=== PATIENT | female | born 1995 | race Caucasian/White ===

== ENCOUNTER 2025-01-07 08:30 | Outpatient (RCR) | payer OTHER, SELFPAY ==
--- NOTE | 2024-10-15 09:48 | OPREHPOC ---
Outpatient Therapy Plan of Care This is a Multidisciplinary Plan of Care that may contain components documented by all disciplines (PT, OT, and ST.) PT Problem 1 PT Problem #1 Knowledge Deficit PT Goal 1 Goal / Goal Update 1. Patient will perform independent HEP Target Visit 3 PT Problem 2 PT Problem #2 Pain PT Goal 1 Goal / Goal Update 1. No pain with pelvic floor palpation in order to reduce pain with urination and tolerate tampon use 2. No pain with urination for at least 1 month Target Visit 4 PT Problem 3 PT Problem #3 Impaired Strength PT Goal 1 Goal / Goal Update 1. Improve pelvic floor strength to 4/5 to reduce incontinence 2. Improve pelvic floor endurance to 10 seconds to reduce incontinence Target Visit 4 PT Problem 4 PT Problem #4 Impaired Functional ADLs PT Goal 1 Goal / Goal Update 1. Patient will report urinary incontinence no more than 1 time a month Target Visit 4
--- NOTE | 2024-10-15 09:48 | PTOPEVAL1 ---
Assessment and note entered by Mireya Cavanaugh DPT Evaluation Information Assessment Status Evaluation ICD-10 Condition Codes (PT) Pelvic and perineal pain R10.2,Stress incontinence N39.3 Subjective Information Pt reports stress incontinence that has been going on for a long time in her life. Wants to resolve the issue before attempting to have children. Also reports burning with urination if she is very stressed out. Voids 5 times a day and usually none at night. Incontinence 2-3 times a week, sometimes has to change her underwear. Sometimes wears a pad or liner. Can hold urge to void up to 30 minutes. Highest pain with urination when it happens is a 6/10 and lowest 0/10. BM 2-3 times a day without pain. Has had intermittent pelvic pain after intercourse at times. Discomfort with tampons and typically does not use them. Pt has never been . No [employer] history. Chronic UTI's she thinks were associated with IUD in 2016. Patient goal: prepare for and childbirth , minimize incontinence Returns to [place] over the summer. Reported Pain Level Pain Score 0: Self Report Assessment PT Clinical Summary The patient is presenting to skilled therapy with a history of stress incontinence and also reports a history of intermittent pelvic pain/pain with urination. She presents with decreased pelvic floor strength and endurance as well as increased pelvic floor muscle tone, pain with palpation, and difficulty relaxing after contraction. She will highly benefit from skilled therapy to address muscle tone and strength in order to eliminate pain and incontinence and to restore full function . Plan of Care Interventions Electrical Stimulation,Hot Pack/Cold Pack,Manual Therapy,Neuro Re-education,Patient/Caregiver Education,Therapeutic Activities,Therapeutic Exercise PT Services Indicated Yes Treatment Frequency and 1 time a week for 4 visits Duration These treatments will address the objective and functional deficits as defined above. The patient will be advanced safely and appropriately in order for the patient to progress towards his/her prior level of function. Additional exercises will be introduced and as well as a comprehensive home exercise program upon discharge, if needed, ?to ensure carryover of functional gains achieved in the clinic. This treatment plan has been reviewed and agreement upon by the patient.
--- NOTE | 2024-11-05 09:02 | OPREHPOC ---
Outpatient Therapy Plan of Care This is a Multidisciplinary Plan of Care that may contain components documented by all disciplines (PT, OT, and ST.) PT Problem 1 PT Problem #1 Knowledge Deficit PT Goal 1 Goal / Goal Update 1. Patient will perform independent HEP Target Visit 3 Progress Met PT Problem 2 PT Problem #2 Pain PT Goal 1 Goal / Goal Update 1. No pain with pelvic floor palpation in order to reduce pain with urination and tolerate tampon use 2. No pain with urination for at least 1 month update 11/05/24 1. met 2. not met Target Visit 8 Progress Partially Met PT Problem 3 PT Problem #3 Impaired Strength PT Goal 1 Goal / Goal Update 1. Improve pelvic floor strength to 4/5 to reduce incontinence 2. Improve pelvic floor endurance to 10 seconds to reduce incontinence Target Visit 4 Progress Not Met PT Problem 4 PT Problem #4 Impaired Functional ADLs PT Goal 1 Goal / Goal Update 1. Patient will report urinary incontinence no more than 1 time a month update 11/05/24 1. decreased incontinence over the last week Target Visit 8 Progress Partially Met
--- NOTE | 2024-11-05 09:02 | PTOPPROG ---
Assessment and note entered by Mireya Cavanaugh DPT Evaluation Information Assessment Status Progress ICD-10 Condition Codes (PT) Pelvic and perineal pain R10.2,Stress incontinence N39.3 Subjective Information Pt reports she has been feeling improvements with therapy. Did have a busy/stressful week and noticed some pain, but incontinence was improved with sneezing over the past week. Assessment PT Clinical Summary The patient has made some progress in therapy. No pain reported with pelvic floor palpation this visit and reports improvements in incontinence over the last week. She does continue to display increased pelvic floor muscle tone as well as decreased strength/endurance and she will benefit from further therapy to fully address pain and incontinence to restore full function. Plan of Care Interventions Electrical Stimulation,Hot Pack/Cold Pack,Manual Therapy,Neuro Re-education,Patient/Caregiver Education,Therapeutic Activities,Therapeutic Exercise PT Services Indicated Yes Treatment Frequency and 1 time a week for 4 visits Duration These treatments will address the objective and functional deficits as defined above. The patient will be advanced safely and appropriately in order for the patient to progress towards his/her prior level of function. Additional exercises will be introduced and as well as a comprehensive home exercise program upon discharge, if needed, ?to ensure carryover of functional gains achieved in the clinic. This treatment plan has been reviewed and agreement upon by the patient.
--- NOTE | 2024-11-10 15:54 | PCPTNOTE ---
Patient called to cancel appointment 11/10/24 due to inclement weather.
--- NOTE | 2024-12-02 08:57 | OPREHPOC ---
Outpatient Therapy Plan of Care This is a Multidisciplinary Plan of Care that may contain components documented by all disciplines (PT, OT, and ST.) PT Problem 1 PT Problem #1 Knowledge Deficit PT Goal 1 Goal / Goal Update 1. Patient will perform independent HEP Target Visit 3 Progress Met PT Problem 2 PT Problem #2 Pain PT Goal 1 Goal / Goal Update 1. No pain with pelvic floor palpation in order to reduce pain with urination and tolerate tampon use 2. No pain with urination for at least 1 month update 11/05/24 1. met 2. not met update 12/02/24 2. not met Target Visit 11 Progress Partially Met PT Problem 3 PT Problem #3 Impaired Strength PT Goal 1 Goal / Goal Update 1. Improve pelvic floor strength to 4/5 to reduce incontinence 2. Improve pelvic floor endurance to 10 seconds to reduce incontinence update 12/02/24 1. improved to 3/5 2. not met Target Visit 11 Progress Partially Met PT Problem 4 PT Problem #4 Impaired Functional ADLs PT Goal 1 Goal / Goal Update 1. Patient will report urinary incontinence no more than 1 time a month update 11/05/24 1. decreased incontinence over the last week update 12/02/24 1. 1 time in the last 2 weeks Target Visit 11 Progress Partially Met
--- NOTE | 2024-12-02 08:58 | PTOPPROG ---
Assessment and note entered by Mireya Cavanaugh DPT Evaluation Information Assessment Status Progress ICD-10 Condition Codes (PT) Pelvic and perineal pain R10.2,Stress incontinence N39.3 Subjective Information Pt reports generally she has noticed a lot of progress over the last few weeks. Highest pain in last few weeks 410 but overall has been a 0/10. Has had multiple days in a row without pain. Incontinence 1 time over the last 2 weeks due to a lot of coughing and sneezing. Assessment PT Clinical Summary The patient has continued to make good progress in therapy. Highest pain recently 12/30 but has had multiple pain free days in a row. Incontinence only 1 time in the last 2 weeks. She demonstrates improved pelvic floor strength and ability to relax after contraction as well as further improved abdominal strength. Due to her progress but continued pain, plan to continue therapy to further address pain in order to restore full function. Plan of Care Interventions Electrical Stimulation,Hot Pack/Cold Pack,Manual Therapy,Neuro Re-education,Patient/Caregiver Education,Therapeutic Activities,Therapeutic Exercise PT Services Indicated Yes Treatment Frequency and 1 visit every 2-3 weeks for 3 visits Duration These treatments will address the objective and functional deficits as defined above. The patient will be advanced safely and appropriately in order for the patient to progress towards his/her prior level of function. Additional exercises will be introduced and as well as a comprehensive home exercise program upon discharge, if needed, ?to ensure carryover of functional gains achieved in the clinic. This treatment plan has been reviewed and agreement upon by the patient.
== END 2025-01-13 23:59 | disposition home or self-care (01) ==
LOC: ANHPT 08:30
PROVIDERS: PCP Nurse Practitioner; Visit Provider Nurse Practitioner
DX: N39.3 Stress incontinence (female) (male) (principal)
CPT/HCPCS: 97110; 97112; 97140; 97161; 97530

== ENCOUNTER 2025-01-25 10:54 | Observation (INO) | payer OTHER, SELFPAY ==
[2025-01-25] MEDS: METOCLOPRAMIDE HCL INJ 10 MG/2 ML VIAL IV PUSH (11:47)
--- OUTSIDE RECORDS SUMMARY | 2025-01-25 11:52 | XMS_ITS | Data Portability ---
Author Organization [facility] Address [address] [place] [address] Care Team Providers Care Movement Assembler Name Role Phone ALEXEY BEARD Primary Care Provider Assessment Encounter Date Assessment Date Assessment LastModified by Organization Details LastModified Time 04/16/2024 04/16/2024 Annual gynecological exam performed. Patient will come back in a year unless there are new symptoms. Not available 04/16/2024 10:17:15 Plan of Treatment Reminders Order Date Submit Date Provider Last Modified By Organization Details Last Modified Time Details Appointments FOLLOW UP 2024 10:15A M Smita Vitale CNM Not available Not available Not available U/S OB SNEAK PEAK 2024 08:30A M ULTRASOUND Not available Not available Not available OB SCREEN 2024 09:15A M Smita Vitale CNM Not available Not available Not available Lab None recorde d. Referral pelvic floor therapy referra l [address] (Outpatient Physical Therapy), [address], [place], [address], 01/21/2025 16:52:52 Procedures None recorde d. Surgeries None recorde d. Imaging None recorde d. Medication Orders 10/11 (28) 1 mg-20 mcg (21)/75 mg (7) tablet 2023 024 tabner1 clipkit - [facility], [address], [place], [place], [id number], 09/29/2024 10:01:22 Patient TargetsNo targets recorded. Patient InstructionsNo instructions recorded. Reason for Referral Pelvic Floor Therapy Referra l for Female stress incontinence Referring Physician: Zeinab Hernandez, TECHNICAL SALES MANAGER, Encounter Date: 09/29/2024 Results Created Date Observation Date Name Description Value Unit Range Abnormal Flag Note LastModifiedBy Organization Detail LastModifiedTime 10/10/19 25 10/10/2024 [UNIT Y] SOM Muhammad sickle cell disease/beta -thalassemia /hemoglobino pathies carrier screen NEGATI VE normal Not Available [facility] [address] [facility], [place], [address], 10/10/2024 11:38:10 10/10/19 25 10/10/2024 [UNIT Y] SOM CYNTHIA GIOVANASeun Muhammad alpha-thalas semia carrier screen NEGATI VE normal Not Available [facility], [place], [address], 10/10/2024 11:38:10 10/10/19 25 10/10/2024 [UNIT Y] SOM CYNTHIA GIOVANASeun Muhammad cystic fibrosis carrier screen NEGATI VE normal Not Available [facility] [address] [facility], [place], [address], 10/10/2024 11:38:10 10/10/19 25 10/10/2024 [UNIT Y] SOM MARIE GIOVANASeun Muhammad spinal muscular atrophy carrier screen NEGATI VE 2 SMN1 copies , SNP not presen t normal Not Available [facility] [address] [facility], [place], [address], 10/10/2024 11:38:10 10/10/19 25 10/10/2024 [UNIT Y] SOM Muhammad for detailed report, see pdf See PDF normal Not Available [facility] [address] [facility], [place], [address], 10/10/2024 11:38:10 04/16/20 24 04/16/2024 IMAGE GUIDE D PAP, REFLE X HPV IF ASCUS ONLY image guided Pap, reflex HPV ASCUS only SEE RESULT S BELOW CASE REPOR T: Cytol ogy Gynec ologi galen Repor t Case: [id number] [address] sabrina luciano Provi marvin: Zeinab Hernandez, ELDA Morse cted: 04/16 1104 Order ing Locat ion: [place] Path[facility] logilda Recei pretty: 04/17 0233 First Scree n: Zohra Thompson, CT Rescr een: Nancy Mario Speci men: Terra calloway Pap - Image d, Cervi x STATE MENT OF ADEQU ACY: Satis facto ry for evalu ation Trans forma tion zone compo nent prese nt ----- ----- ----- ----- ----- ----- ----- ----- ----- ----- ----- ----- ----- ----- ----- ----- ----- ---- FINAL DIAGN OSIS: Negat bobby for Intra epith elial Lesio n or Gina herrera (NIL) . Elect tree calvillo by Nancy Mario on 024 at 7:45 PM ----- ----- ----- ----- ----- ----- ----- ----- ----- ----- ----- ----- ----- ----- ----- ----- ----- ---- COMME NT: This speci men was revie wed by a Cytot echno logis t and/o r Patho logis t (as indic ated in this repor t) after evalu ation using the Thinp rep Imagi ng Syste m. CLINI GALEN INFOR MATIO N: Menst rual Statu s: LMP (if appli cable ): 2023 Clini galen Histo ry/Pr brendon s Pap: Type of Neopl darryn (if appli cable ): Signi fican t Clini galen Findi ngs: Other Histo ry: Hormo jenni (if appli cable ): PAP EDUCA TATUM L NOTE: The Pap Test is a scree elli test with an inher ent false negat bobby rate. Liqui d-bas ed sampl ing may decre ase, but will not elimi david, false negat bobby resul ts. A negat bobby resul t does not precl ude the prese nce and/o r devel opmen t of disea se, since the prese nce of abnor mal cells in the sampl e depen ds on the locat ion of the lesio n and sampl ing techn ique. Kaleigh nued regul ar scree elli is the best metho d of cance r preve ntion . If repor talya cytol ogic findi ng do not corre late with physi galen and/o r histo rical findi ngs, furth er inves tigat ion is recom nicolasa d, as clini kayla warra nted. Not Available [facility] (Lab) [address] [facility], [place], [address], 04/23/2024 20:48:57 Result Notes None recorded. Problems Name Problem SNOMED Code Status Onset Date Resolution Date Notes Provider Name and Address Organization Details Recorded Time Attention deficit hyperactivity disorder 664087842 Active 2024 Staci garcía [facility] 5 11:32:31 Mixed anxiety and depressive disorder 967652774 Active 2024 Staci garcía [facility] 5 11:32:40 Problem Notes None recorded. Procedures Surgical History Date Name Laterality Status Provider Name and Address Organization Details Recorded Time 4 Date of Last Pap Smear completed Cecelia Lenz [facility] 09/29/2024 10:01:45 5 extraction of wisdom tooth completed Staci Jara [facility] 01/25/2025 11:38:12 Imaging Results None recorded. Procedure Notes None recorded. Medical Equipment None Reported. Allergies Allergen ID Allergen Name Allergen Category Reaction Reaction Severity Criticality Documentation Date Start Date Code Code System Note Provider Name and Address Organization Details Recorded Time 79358 erythromy suleiman medicatio n hives moderate Not available 04/16/2024 4053 RxNorm [facility] 10:17:32 89318 Substance with sulfonami de structure and antibacte rial mechanism of action (substanc e) medicatio n Not available Not available Not available 04/16/2024 [address] [facility] 10:23:50 Medications Name Sig Start Date Stop Date Status Note LastModified by Organization Details LastModified Time fluconazole 150 mg tablet TAKE 1 TABLET BY MOUTH NOW AND 1 TABLET AGAIN AFTER ANTIBIOTI CS ARE FINISHED. 09/29 completed Not Available Not Available Not Available prednisone 20 mg tablet TAKE 3 TABLETS BY EVERY MORNING FOR 5 DAYS 09/29 completed Not Available Not Available Not Available doxycycline monohydrate 100 mg tablet TAKE 1 TABLET BY MOUTH TWICE A DAY FOR 7 DAYS 09/29 completed Not Available Not Available Not Available albuterol sulfate HFA 90 mcg/actuati on aerosol inhaler PLEASE SEE ATTACHED FOR DETAILED DIRECTION S 09/29 completed Not Available Not Available Not Available metoclopram geovany 10 mg tablet Take 1 tablet 4 times a day by oral route as needed. active Not Available Not Available No t Available 10/11 (28) 1 mg-20 mcg (21)/75 mg (7) tablet take 1 tablet by mouth daily, take continuou sly skipping placebo pills 09/29 completed Not Available Not Available Not Available 10/11 (21) 05/28 completed Not Available Not Available Not Available Vitals Date Recorded Body weight Body mass index (BMI) Body height Systolic blood pressure Diastolic blood pressure Provider Name and Address Organization Details Last Updated DateTime 04/16/2024 43581.96 g 21.4 kg/m2 160.02 cm 116 mm[Hg] 74 mm[Hg] Alesia Bejarano [facility] 4 10:22:58 Date Recorded Body height Body mass index (BMI) Body weight Systolic blood pressure Diastolic blood pressure Provider Name and Address Organization Details Last Updated DateTime 09/29/2024 160.02 cm 21.8 kg/m2 60000.86 g 138 mm[Hg] 70 mm[Hg] Cecelia Lenz [facility] 5 10:00:41 Date Recorded Body height Body mass index (BMI) Body weight Systolic blood pressure Diastolic blood pressure Provider Name and Address Organization Details Last Updated DateTime 01/25/2025 160.02 cm 21.1 kg/m2 37922.49 g 128 mm[Hg] 68 mm[Hg] Staci Jara [facility] 5 11:31:34 Social History Question Answer Notes LastModified by Organizat ion Details LastModified Time Tobacco Smoking Status Never Smoker Alesia garcía, [facility] 04/16/2024 10:25:27 What Is Your Level Of Alcohol Consumption? None [email or web address] Information not available 01/25/2025 If You Are , What Was Your Level Of Alcohol Consumption Prior To ? Occasional [email or web address] Information not available 01/25/2025 How Many Years Have You Consumed Alcohol? 8 Information not available 04/16/2024 Are You Blind Or Do You Have Difficulty Seeing? No Information n ot available 04/16/2024 What Is Your Level Of Caffeine Consumption? Occasional Information not available 04/16/2024 How Much Tobacco Do You Chew? None Information not available 04/16/2024 In The 14 Days Before Symptom Onset, Have You Had Close Contact With A Laboratory-confirm ed COVID-19 While That Case Was Ill? No Information n ot available 04/16/2024 In The 14 Days Before Symptom Onset, Have You Had Close Contact With A Person Who Is Under Investigation For COVID-19 While That Person Was Ill? No Information not available 04/16/2024 Have You Been To An Area Known To Be High Risk For COVID-19? No Information not available 04/16/2024 Are You Deaf Or Do You Have Serious Difficulty Hearing? No Information not available 04/16/2024 What Type Of Diet Are You Following? REGULAR Information n ot available 04/16/2024 What Is The Highest Grade Or Level Of School You Have Completed Or The Highest Degree You Have Received? 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 No Information not available 04/16/2024 Do You Use Your Seat Belt Or Car Seat Routinely? Yes Information not available 04/16/2024 Do You Have Smoke And Carbon Monoxide Detectors In Your Home? Yes Information not available 04/16/2024 How Much Tobacco Do You Smoke? No Information not available 04/16/2024 Do You Feel Stressed (tense, Restless, Nervous, Or Anxious, Or Unable To Sleep At Night)? [id number] Information not available 04/16/2024 Do You Use Any Illicit Or Recreational Drugs? No Information not available 04/16/2024 Do You Use Sunscreen Routinely? Yes Information not available 04/16/2024 How Many Years Have You Smoked Tobacco? 0 Information not available 04/16/2024 Have You Used IV Drugs? No Information not available 04/16/2024 Sex: Unknown Functional Status Question Answer Note LastModified by Organizat ion Details LastModified Time Do you have difficulty walking or climbing stairs? No Information not available 04/16/2024 Are you able to walk? YESWOREST Information not available 04/16/2024 Are you able to care for yourself? Yes Information not available 04/16/2024 Do you have difficulty dressing or bathing? No Information not available 04/16/2024 What is your exercise level? Heavy Information not available 04/16/2024 Mental Status None recorded. Family History Relationship Description Onset Age of this Age Resolved Age Notes LastModified by Organization Details LastModified Time Unspecified Relation Family history unknown Not available 2023 10:17:38 Mother Mammographic breast tissue appearance dense breast tissue [email or web address] Not available 01/25/2025 11:37:37 Paternal Grandfather Malignant tumor of colon [email or web address] Not available 01/25 11:37:48 Medical History Condition Response Allergies (Food, seasonal, environmental ) Y Other N Drug/Latex Allergies/Reactions Y Breast Cancer N Blood Transfusion N Dermatologic Disorders N Lung Disease N Defects or Inherited Disease N Breast Problem N Gestational Diabetes N Hematologic disorders N Anesthesia Complications N History of STI N Deep Vein Thrombosis N Polycystic ovary syndrome N Anxiety Disorder Y Autoimmune disease N Arthritis N Polyps N Infertility N Acid Reflux (GERD) N History of abnormal pap N Cancer N Varicosities N Stroke N Neurologic/Epilepsy Y Endometriosis N High Cholesterol N Fibromyalgia N Headaches N Kidney Disease N Heart Problems N Thyroid Problems N Kidney or Bladder Problems N GI Problems N Eating Disorder N Anemia N Art (IVF or FET) N Psychiatric Illness Y Ovarian Cancer N Diabetes N Pulmonary (TB, Asthma) N Hepatitis/Liver Disease N No Past Medical History N Eczema N Urinary Tract Infection N Abuse/Domestic Violence N Asthma N Trauma/Violence N Depression/ depression Y Heart Disease N Pre-Eclampsia N Hypertension N Osteoporosis N Thrombophilias N Gynecological History Statement/Question Response Abnormal Pap N Flow Light Date of Last Mammogram Date of LMP 12/03/2024 N Was last menstrual period normal Y STIs/STDs N HPV Vaccine Y Duration of Flow (days) 5 Current Control Method Are cycles usually normal Y Date of Last Colonoscopy Frequency of Cycle (Q days) 29 Sexually Active? Y BCPs Menses Monthly Y Date of DEXA bone scan Age of first menstrual cycle 12 Date of Last Pap Smear 04/16/2024 Sexual Problems? N LMP Definite N Obstetrics History GPAL:G 0 P 0 0 0 0 Type Value Living 0 Total 0 Past Encounters Encounter ID Performer Location Encounter Start Date Encounter Closed Date Diagnosis/Indication Diagnosis SNOMED-CT Code Diagnosis ICD10 Code Diagnosis Note [id number] CALEB Alcaraz [place] [address] [address] 04/16/2024 10:14:10 04/16/2024 10:55:21 Gynecologic examination 58120662 Z01.419 WWEpap updateddec lined STI screenenco uraged annual exam with PCP It is strongly advised to have an annual flu shot and up can obtain at most pharmacies . If you have not had a TDap shot in the last 10 years you should obtain one as well. Discussed with patient & provided with informatio n regarding the HPV vaccine if applicable . Encourage safe sexual practices, to use condoms and limit partners if not already in a monogamous relationsh ip. Do monthly self breast exams. BRCA testing is now available for patients with strong genetic history of female cancer. If interested contact the office. Engage in regular exercise. Avoid tobacco and illicit drugs. This lifestyle behavior pattern will lead to less health conditions and longer life span. If BMI greater than 25 dietary consult advised. Patient received above instructio ns, and questions have been answered. Contracept ion care management 809169245 Z30.9 Doing well on current OCP and desires to continuere fills sent, r/b/a reviewed, consent reviewed and signed by pt [id number] CALEB Alcaraz [facility] [address] [address] 09/29/2024 09:47:07 09/29/2024 12:39:30 Female stress incontinence 36661482 N39.3 referral for pelvic floor physical therapy chichi rousseau answered Reproducti ve care management [id number] Z31.9 encouraged daily PNVdiscuss ed TTCorder placed for preconcept ion genetic carrier screening per pt request Time spent in visit is a total of 20 mins with at least 50% of visit consisting of counseling and review of plan of care. Health Concerns Section Related Observation LastModified by Organization Detai ls LastModified Time None Recorded Concern Status LastModified by Organization Details LastModified Time None Recorded Advance Directives Directive None Recorded Payers Encounter Date Sequence Insurance Name Policy Number Policy Bain Covered Member ID Bain Member ID Guarantor Name 04/16/2024 1 [facility] [id number] Marcie Mares [id number] Marcie Mares 09/29/2024 1 [facility] [id number] [facility] [id number] Marcie Mares Notes Date Note Type Note Provider Name and Address Organization Details Recorded Time 04/16/2024 text/html Annual GYNReport ed bypatient.Menstrual cycle:Normal menses Urinary symptoms:No hematuria; No incontinence Vulva:No genital lesion Vagina:Normal vaginal discharge Breast:No breast pain; No breast lump; No nipple discharge Current Contraception:Satisf ied with current contraception; Oral contraceptives Sexual complaints:No sexual complaints; No pain during intercourse; Normal libido Menopausal Symptoms:No menopausal symptoms; Normal vaginal lubrication Psychological symptoms:No depression; No anxiety; No PMDD Preventive measures:Encourage self breast examination; Encourage regular exercise; Encourage no tobacco use; Encourage regular mammograms starting age 39Notes:28yo [id number] - OCP, happy with this method and desires to continueno h/o abnormal paps denies h/o DVT/PE, HTN, Stroke/PA, cancer, liver disease, or migraine with aura getting in May at [facility] CALEB Alcaraz [address], [place], [address], [facility] 04/16/2024 10:52:29 09/29/2024 text/html 29yo [id number] to discuss pelvic floor physical therapyhas noticed leaking urine with coughing/exercise at times. Considering TTC this year and would like to trail PFPT prior to .Int in preconception genetic carrier screening CALEB Alcaraz [address], [place], [address], [facility] 09/29/2024 12:37:28 OBGyn Episode No OBEpisode recorded.
[2025-01-25 11:58] LABS: Hematocrit 43.1 % (37.0-47.0); Hemoglobin 14.7 g/dL (12.0-15.0); Mean Corpuscular HGB Conc 34.1 g/dl (32-36); Mean Corpuscular Hemoglobin 30.5 pg (26-34); Mean Corpuscular Volume 89.4 fl (80-100); Mean Platelet Volume 10.4 fl (7.4-10.4); Platelet Count Result 245 k/mm3 (150-375); Red Blood Count 4.82 M/mm3 (4.2-5.4); Red Cell Distribution Width 11.8 % (11.5-14.5); White Blood Count 10.7 K/mm3 (4.5-10.0)
[2025-01-25] MEDS: FAMOTIDINE 20 MG/2 ML VIAL IV PUSH (12:04)
[2025-01-25] MEDS: THIAMINE HCL INJ 100 MG, FOLIC ACID INJ 1 MG, MULTIVITAMINS-12 INJ VIAL 1 5 ML, MULTIVI... 150 MG IV CONT (12:04)
[2025-01-25 12:09] LABS: Add Urine Microscopic? YES; Appearance Urine Turbid (Clear); Bacteria Urine 3+ /hpf; Bilirubin Urine Negative (Negative); Blood Urine Negative (Negative); Color Urine Yellow (Yellow); Glucose Urine UA Negative (Negative); Ketones Urine Trace mg/dL (Negative); Leukocyte Esterase Ur 1+ LEU/UL (Negative); Mucus Urine Present /lpf; Need Manual Microscopic Reviewed; Nitrate Urine Negative (Negative); Non Pathogenic Casts 0-2; Protein Urine 1+ mg/dL (Negative); Specific Grav Ur 1.024 (1.001-1.035); Squamous Epithelial Cell Urine Moderate /hpf (Few); WBC Urine 0-5 /hpf (0-3)
[2025-01-25 12:10] LABS: Amorphous Sediment Urine Heavy
[2025-01-25 12:27] VITALS: BP 110/59; PULSE 66; RESP 16; TEMP 37.2; BMI 20.7
[2025-01-25 12:27] LABS: Alanine Aminotransferase 23 U/L (6-35); Albumin Level 4.3 g/dL (3.5-5.1); Alkaline Phosphatase 56 U/L (38-126); Anion Gap 10 mmol/L (4-12); Aspartate Amino Transferase 21 U/L (14-36); Bilirubin,Total 1.5 mg/dL (0.2-1.3); Blood Urea Nitrogen 6 mg/dL (7-17); Calcium 9.2 mg/dL (8.4-10.2); Carbon Dioxide 22 mmol/L (22-30); Chloride 106 mmol/L (98-107); Estimated Glomerular Filt Rate > 60; Glucose 86 mg/dL (65-110); Potassium 3.8 mmol/L (3.4-5.0); Sodium 138 mmol/L (137-145)
[2025-01-25 12:46] VITALS: BP 110/59; PULSE 66
--- NOTE | 2025-01-25 14:39 | OBADM ---
This patient, Marcie Marques, admitted to the OB room OB Post 112 for observation. Patient/family oriented to hospital policies and general routines including ID bracelet, bed and alarms, visiting hours, pain management, procedures, bathroom and other care routines, personal items, smoking policy, room service/diet, and visiting hours. Patient/Family are encouraged to report perceived risks to care and to ask questions if they do not understand what they are told or what they should do.
--- NOTE | 2025-01-26 14:45 | P.PNOB_ITS ---
OB - Triage/Final Diagnosis Visit Information Date of evaluation: 01/25/25 Reason for evaluation: other (nausea and vomiting) Comments/Additional reasons for admission: I have assessed the risk for this patient, Marcie Marques, and determined that she would benefit from observation care. Evaluation Laboratory results: Laboratory Tests 01/25/25 01/25/25 11:31 11:48 WBC 10.7 H RBC 4.82 Hgb 14.7 Hct 43.1 MCV 89.4 MCH 30.5 MCHC 34.1 RDW 11.8 Plt Count 245 MPV 10.4 Sodium 138 Potassium 3.8 Chloride 106 Carbon Dioxide 22 Anion Gap 10 BUN 6 L Creatinine 0.46 L Estim Creat Clear Calc Not Reportable Estimated GFR > 60 Glucose 86 Calcium 9.2 Total Bilirubin 1.5 H AST 21 ALT 23 Alkaline Phosphatase 56 Total Protein 8.0 Albumin 4.3 Urine Color Yellow Urine Appearance Turbid H Urine pH 8.0 Ur Specific [place] 1.024 Urine Protein 1+ H Urine Glucose (UA) Negative Urine Ketones Trace H Ur Blood (Man) Negative Urine Nitrate Negative Urine Bilirubin Negative Urine Urobilinogen 1.0 Ur Leukocyte Esterase 1+ H Add Ur Microanalysis Reviewed Urine RBC 3-5 H Urine WBC 0-5 Ur Squamous Epith Cells Moderate Amorphous Sediment Heavy H Urine Bacteria 3+ H Urine Casts 0-2 Urine Mucus Present
== END 2025-01-25 15:12 | disposition home or self-care (01) ==
PROVIDERS: Admitting Provider Obstetrics & Gynecology; PCP Nurse Practitioner; Referring Provider Advanced Practice Midwife; Visit Provider Obstetrics & Gynecology
DX: O21.0 Mild hyperemesis gravidarum (principal); Z3A.01 Less than 8 weeks gestation of pregnancy
CPT/HCPCS: 36415; 80053; 81001; 85027; 87086; 96374; 96375; G0378; G0379; J2765; J3411; J3475; J7121

== ENCOUNTER 2025-01-28 10:40 | Outpatient (CLI) | payer OTHER, SELFPAY ==
--- OUTSIDE RECORDS SUMMARY | 2025-01-28 10:50 | XMS_ITS | Data Portability ---
Author Organization [facility] [place] Address [address] [place] [address] Care Team Providers Care Parks Recreation Director Name Role Phone ALEXEY BEARD Primary Care Provider Assessment Encounter Date Assessment Date Assessment LastModified by Organization Details LastModified Time 04/16/2024 04/16/2024 Annual gynecological exam performed. Patient will come back in a year unless there are new symptoms. Not available 04/16/2024 10:17:15 Plan of Treatment Reminders Order Date Submit Date Provider Last Modified By Organization Details Last Modified Time Details Appointments U/S OB SNEAK PEAK 2024 08:30A M ULTRASOUND Not available Not available Not available OB SCREEN 2024 09:15A M Smita Vitale CNM Not available Not available Not available Lab None recorde d. Referral pelvic floor therapy referra l 2024 025 [facility] (Outpatient Physical Therapy), [address], [place], [address], 01/28/2025 04:02:28 Procedures None recorde d. Surgeries None recorde d. Imaging None recorde d. Medication Orders 10/11 (28) 1 mg-20 mcg (21)/75 mg (7) tablet 2023 024 [email or web address] [facility], [address], [place], [place], [phone], 09/29/2024 10:01:22 Patient TargetsNo targets recorded. Patient InstructionsNo instructions recorded. Reason for Referral Pelvic Floor Therapy Referra l for Female stress incontinence Referring Physician: Zeinab Hernandez, SUPERVISOR [employer], Encounter Date: 09/29/2024 Results Created Date Observation Date Name Description Value Unit Range Abnormal Flag Note LastModifiedBy Organization Detail LastModifiedTime 10/10/19 25 10/10/2024 [UNIT Y] SOM LA N sickle cell disease/beta -thalassemia /hemoglobino pathies carrier screen NEGATI VE normal Not Available [facility] [address], [place], [address], 10/10/2024 11:38:10 10/10/19 25 10/10/2024 [UNIT Y] SOM CYNTHIA LA N alpha-thalas semia carrier screen NEGATI VE normal Not Available [facility] [address], [place], [address], 10/10/2024 11:38:10 10/10/19 25 10/10/2024 [UNIT Y] SOM YCNTHIA LA N cystic fibrosis carrier screen NEGATI VE normal Not Available [facility] [address], [place], [address], 10/10/2024 11:38:10 10/10/19 25 10/10/2024 [UNIT Y] SOM LA N spinal muscular atrophy carrier screen NEGATI VE 2 SMN1 copies , SNP not presen t normal Not Available [facility] [address], [place], [address], 10/10/2024 11:38:10 10/10/19 25 10/10/2024 [UNIT Y] SOM LA N for detailed report, see pdf See PDF normal Not Available [facility] [address], [place], [address], 10/10/2024 11:38:10 04/16/20 24 04/16/2024 IMAGE GUIDE D PAP, REFLE X HPV IF ASCUS ONLY image guided Pap, reflex HPV ASCUS only SEE RESULT S BELOW CASE REPOR T: Cytol ogy Gynec ologi galen Repor t Case: [id number] Autho sabrina luciano Provi marvin: Zeinab Hernandez, ELDA Morse cted: 04/16 1104 Order ing Locat ion: [place] Patho hardeep Hymanfareed pretty: 04/17 0233 First Terra n: Zohra Thompson, CT Rescr een: Nancy [...] OSIS: Negat bobby for Intra epith elial Blanca kaur or Gina herrera ([facility]) . Elect tree calvillo by Nancy Mario [...] cable ): 2023 Clini galen Histo ry/Pr eviou s Pap: Type of Neopl darryn (if [...] is recom nicolasa d, as clini kayla miner nted. Not Available [facility] (Lab) [address], [place], [address], 04/23/2024 20:48:57 Result Notes None recorded. Problems Name Problem SNOMED Code Status Onset Date Resolution Date Notes Provider Name and Address Organization Details Recorded Time Attention deficit hyperactivity disorder 804902186 Active 2024 Staci garcía [facility] 5 11:32:31 Mixed anxiety and depressive disorder 933665593 Active 2024 Staci garcía [facility] 5 11:32:40 Problem Notes None recorded. Procedures Surgical History Date Name Laterality Status Provider Name and Address Organization Details Recorded Time 4 Date of Last Pap Smear completed Cecelia Lenz [facility] 09/29/2024 10:01:45 5 extraction of wisdom tooth completed Staci Jara [facility] 01/25/2025 11:38:12 Imaging Results None recorded. Procedure Notes None recorded. Medical Equipment None Reported. Allergies Allergen ID Allergen Name Allergen Category Reaction Reaction Severity Criticality Documentation Date Start Date Code Code System Note Provider Name and Address Organization Details Recorded Time 46623 erythromy suleiman medicatio n hives moderate Not available 04/16/2024 4053 [facility] 4 10:17:32 25687 Substance with sulfonami de structure and antibacte rial mechanism of action (substanc e) medicatio n Not available Not available Not available 04/16/2024 75908 8003 [facility] 4 10:23:50 Medications Name Sig Start Date Stop [...] Address Organization Details Last Updated DateTime 04/16/2024 21798.96 g 21.4 kg/m2 160.02 cm 116 mm[Hg] 74 mm[Hg] Alesia Bejarano [facility] 4 10:22:58 Date Recorded Body height Body mass index (BMI) Body weight Systolic blood pressure Diastolic blood pressure Provider Name and Address Organization Details Last Updated DateTime 09/29/2024 160.02 cm 21.8 kg/m2 01353.86 g 138 mm[Hg] 70 mm[Hg] Cecelia Delfin [facility] 10:00:41 Date Recorded Body height Body mass index (BMI) Body weight Systolic blood pressure Diastolic blood pressure Provider Name and Address Organization Details Last Updated DateTime 01/25/2025 160.02 cm 21.1 kg/m2 71118.49 g 128 mm[Hg] 68 mm[Hg] Staci Wilcoxtz [facility] 11:31:34 Social History Question Answer Notes LastModified by Organizat ion Details LastModified Time Tobacco Smoking Status Never Smoker Alesia Sharifse garcía, [facility] 04/16/2024 10:25:27 What Is Your Level Of Alcohol Consumption? None [email or web address] Information not available 01/25/2025 If You Are , What Was Your Level Of Alcohol Consumption Prior To ? Occasional [email or web address] Information not available 01/25/2025 How Many Years [...] Or The Highest Degree You Have Received? 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 [id number] Information not available 04/16/2024 Do You Use [...] Mammographic breast tissue appearance dense breast tissue [email or web address] Not available 01/25/2025 11:37:37 Paternal Grandfather Malignant tumor of colon [email or web address] Not available 01/25 11:37:48 Medical History Condition Response Allergies (Food, seasonal, environmental ) Y Other N Drug/Latex Allergies/Reactions Y Blood Transfusion N Breast Cancer N Dermatologic Disorders N Lung Disease N [...] SNOMED-CT Code Diagnosis ICD10 Code Diagnosis Note [id number] CALEB Alcaraz [place] [address] [address] 04/16/2024 10:14:10 04/16/2024 10:55:21 Gynecologic examination 58327362 Z01.419 WWEpap updateddec lined STI screenenco uraged [...] have been answered. Contracept ion care management [id number] Z30.9 Doing well on current OCP and desires to continuere fills sent, r/b/a reviewed, consent reviewed and signed by pt [id number] CALEB Alcaraz [place] [address] [address] 09/29/2024 09:47:07 09/29/2024 12:39:30 Female stress incontinence 43331187 N39.3 referral for pelvic floor physical therapy vereniceques onelia hCanel ve care management [id number] Z31.9 encouraged daily PNVdiscuss ed TTCorder placed for preconcept ion genetic carrier screening per pt request Time spent in visit is a total of 20 mins with at least 50% of visit consisting of counseling and review of plan of care. [id number] Smita Vitale CNM [place] [address] [address] 01/25/2025 11:08:55 01/26/2025 10:41:44 Nausea and vomiting in [id number] O21.9 to ld for labs and IV hydrationf /u ob screening as scheduledr eviewed us Health Concerns Section Related Observation LastModified by Organization Detai ls LastModified Time None Recorded Concern Status LastModified by Organization Details LastModified Time None Recorded Advance Directives Directive None Recorded Payers Encounter Date Sequence Insurance Name Policy Number Policy Bain Covered Member ID Bain Member ID Guarantor Name 04/16/[address] [facility] [id number] Marcie Mares [id number] Marcie Mares 09/29/[address] [facility] [id number] Marcie Mares [id number] Marcie Mares 01/25/[address] [facility] [id number] Marcie Mares [id number] Marcie Mares Notes Date Note Type Note [...] use; Encourage regular mammograms starting age 39Notes:28yo [id number] - OCP, happy with this method and desires to continueno h/o abnormal paps denies h/o DVT/PE, HTN, Stroke/VA, cancer, liver disease, or migraine with aura [place] CALEB Alcaraz [address], [place], [address], [facility] 04/16/2024 10:52:29 09/29/2024 text/html 29yo [id number] to discuss pelvic floor physical therapyhas noticed leaking urine with coughing/exercise at times. Considering TTC this year and would like to trail PFPT prior to .Int in preconception genetic carrier screening CALEB Alcaraz [address], [place], [address], [facility] 09/29/2024 12:37:28 01/25/2025 text/html pt presents with complaints of amenorrhea +UPT and now nausea and vomitingunable to work, feels awful, food aversions, cant keep much down, has rx for reglan has tried b6 and unisom Smita Vitale, [place] [address], [place], [address], [facility] 01/26/2025 09:19:56 OBGyn Episode No OBEpisode recorded.
[2025-01-28] MEDS: ONDANSETRON INJ 4 MG/2 ML VIAL IV PUSH (11:23)
[2025-01-28] MEDS: THIAMINE HCL INJ 100 MG, FOLIC ACID INJ 1 MG, MAGNESIUM SULFATE INJ 1 GM, MULTIVITAMINS... IV CONT (11:30)
[2025-01-28 11:33] LABS: Add Urine Microscopic? YES; Appearance Urine Turbid (Clear); Bacteria Urine 2+ /hpf; Bilirubin Urine Negative (Negative); Blood Urine Negative (Negative); Color Urine Yellow (Yellow); Glucose Urine UA Negative (Negative); Ketones Urine Negative (Negative); Leukocyte Esterase Ur 2+ LEU/UL (Negative); Need Manual Microscopic Reviewed; Nitrate Urine Negative (Negative); Non Pathogenic Casts 0-2; Protein Urine Trace mg/dL (Negative); RBC Urine 0-2 /hpf (0-2); Specific Grav Ur 1.017 (1.001-1.035); Squamous Epithelial Cell Urine Few /hpf (Few); WBC Urine 0-5 /hpf (0-3); pH Urine 7.5 (5.0-9.0)
--- NOTE | 2025-01-28 18:35 | PC.NURSE ---
Pt stated that she feels much better now.
--- NOTE | 2025-01-28 18:40 | PC.NURSE ---
Pt discharged home in stable condition per order from [facility]. Discharge instructions explained to pt, pt stated understanding, all questions and concerns answered. Pt ambulated out of department with all belongings.
== END 2025-01-28 18:40 | disposition home or self-care (01) ==
LOC: ANHOBOP 16:21 → ANHOBPP 16:22
PROVIDERS: PCP Nurse Practitioner; Visit Provider Advanced Practice Midwife
DX: O21.0 Mild hyperemesis gravidarum (principal); Z3A.00 Weeks of gestation of pregnancy not specified
CPT/HCPCS: 81001; 87086; 96365; 96366; 96375; 99199; J2405; J3411; J3475; J7121

== ENCOUNTER 2025-02-04 08:29 | Outpatient (RCR) | payer OTHER, SELFPAY ==
--- NOTE | 2025-01-17 09:30 | PCPTNOTE ---
The treatment documented on this account is a continuation of the treatment documented on visit number [id number]. Please see documentation on both accounts to view progress. The Plan of Care has been transitioned and updated within the new V#. I have addressed and agree with the discipline specific Problems, Interventions, and Goals for the current certification period. Completed interventions, outcomes, and problems have been marked as Inactive to facilitate the copying of the Care plan routine for recurring accounts.
--- NOTE | 2025-02-04 09:09 | OPREHPOC ---
Outpatient Therapy Plan of Care This is a Multidisciplinary Plan of Care that may contain components documented by all disciplines (PT, OT, and ST.) PT Problem 1 PT Problem #1 Knowledge Deficit PT Goal 1 Goal / Goal Update 1. Patient will perform independent HEP Target Visit 3 Progress Met PT Problem 2 PT Problem #2 Pain PT Goal 1 Goal / Goal Update 1. No pain with pelvic floor palpation in order to reduce pain with urination and tolerate tampon use 2. No pain with urination for at least 1 month update 11/05/24 1. met 2. not met update 12/02/24 2. not met Target Visit 11 Progress Met PT Problem 3 PT Problem #3 Impaired Strength PT Goal 1 Goal / Goal Update 1. Improve pelvic floor strength to 4/5 to reduce incontinence 2. Improve pelvic floor endurance to 10 seconds to reduce incontinence update 12/02/24 1. improved to 3/5 2. not met update 02/04/25 1. unable to reassess 2. unable to reassess Target Visit 11 Progress Partially Met PT Problem 4 PT Problem #4 Impaired Functional ADLs PT Goal 1 Goal / Goal Update 1. Patient will report urinary incontinence no more than 1 time a month update 11/05/24 1. decreased incontinence over the last week update 12/02/24 1. 1 time in the last 2 weeks update 02/04/25 1. 2 times in the last month Target Visit 11 Progress Partially Met
--- NOTE | 2025-02-04 09:09 | PTOPDC ---
Assessment and note entered by Mireya Cavanaugh DPT Evaluation Information Assessment Status Discharge ICD-10 Condition Codes (PT) Pelvic and perineal pain R10.2,Stress incontinence N39.3 Subjective Information Pt reports she has had significant morning sickness and has not been able to do her exercises . 2 instances of incontinence in the last month and only had pelvic pain while her morning sickness was at it's worst. Pt is currently 9 weeks . Feels comfortable with discharge this visit to continue HEP and will follow up as needed. Reported Pain Level Pain Score 0: Self Report Assessment PT Clinical Summary The patient has made good progress overall in therapy. She is currently 9 weeks and reports minimal pain and incontinence over the last month, possibly related to her significant morning sickness. Due to her progress and independence with HEP, plan to discharge therapy at this time. She has been educated to follow up with MD and/or PT as needed. Plan of Care PT Services Indicated No
== END 2025-02-04 11:18 | disposition home or self-care (01) ==
LOC: ANHPT 08:29
PROVIDERS: PCP Nurse Practitioner; Visit Provider Nurse Practitioner
DX: N39.3 Stress incontinence (female) (male) (principal)
CPT/HCPCS: 97112; 97530

== ENCOUNTER 2025-08-30 09:03 | Outpatient (CLI) | payer OTHER, SELFPAY ==
[2025-08-30] VITALS (7 sets, daily range): BP systolic 124–131; BP diastolic 76–92; PULSE 75–101; BMI 27.6
[2025-08-30 09:45] LABS: Add Urine Microscopic? YES; Appearance Urine Clear (Clear); Glucose Urine UA Negative (Negative); Leukocyte Esterase Ur Trace LEU/UL (Negative); Nitrate Urine Negative (Negative); Non Pathogenic Casts 0-2; Specific Grav Ur 1.023 (1.001-1.035)
[2025-08-30 09:48] LABS: Hematocrit 35.9 % (37.0-47.0); Hemoglobin 11.9 g/dL (12.0-15.0); Immature Granulocyte Percent A 0.5 % (0-0.5); Immature Platelet Fraction Pct 18.9 % (0.9-11.2); Lymphocytes Absolute Auto 2.16 K/mm3 (0.9-3.2); Mean Corpuscular HGB Conc 33.1 g/dl (32-36); Mean Corpuscular Hemoglobin 30.0 pg (26-34); Mean Corpuscular Volume 90.4 fl (80-100); Nucleated Red Blood Cells Absolute Auto 0.000 K/mm3 (0.0-0.012); Nucleated Red Blood Cells Perc 0.0 % (0.0-0.2); Platelet Count Result 132 k/mm3 (150-375); Red Blood Count 3.97 M/mm3 (4.2-5.4); White Blood Count 8.5 K/mm3 (4.5-10.0)
[2025-08-30 10:01] LABS: Alanine Aminotransferase 12 U/L (6-35); Albumin Level 3.6 g/dL (3.5-5.1); Alkaline Phosphatase 196 U/L (38-126); Anion Gap 4 mmol/L (4-12); Aspartate Amino Transferase 23 U/L (14-36); Bilirubin,Total 0.7 mg/dL (0.2-1.3); Blood Urea Nitrogen 11 mg/dL (7-17); Calcium 8.7 mg/dL (8.4-10.2); Carbon Dioxide 22 mmol/L (22-30); Chloride 107 mmol/L (98-107); Estimated CRCL calculation 90 ml/min; Estimated Glomerular Filt Rate > 60; Glucose 77 mg/dL (65-110); Potassium 4.3 mmol/L (3.4-5.0); Sodium 133 mmol/L (137-145); Total Protein 7.2 g/dL (6.3-8.2); Uric Acid 6.5 mg/dL (2.5-7.5)
[2025-08-30 10:11] LABS: Total Protein Urine Random < 5 mg/dL; Ur Ttl Prot Creatinine Ratio < 0.03 mg/mg (0-0.20)
--- NOTE | 2025-08-30 11:17 | PC.NURSE ---
Called email designer at [phone] that pt presented to Labor and Delivery from the office for a PIH workup. PIH labs WNL. Pt having elevated blood pressures 130/90's. Channel Opener Outsoles will consult with MD and call back for orders.
--- NOTE | 2025-08-30 11:19 | PC.NURSE ---
Electronics Scale Tester called at 1021. Verbal orders received for MIOL. Pt will return at 1700 on 08/30/2025 for MIOL
== END 2025-08-30 11:22 | disposition home or self-care (01) ==
LOC: ANHOBOP 09:08 → ANHLDR 09:08
PROVIDERS: Visit Provider Advanced Practice Midwife
DX: O16.9 Unspecified maternal hypertension, unspecified trimester (principal); Z3A.00 Weeks of gestation of pregnancy not specified
CPT/HCPCS: 36415; 59025; 80053; 81001; 82570; 84156; 84550; 85025; 85055; 99199

== ENCOUNTER 2025-08-30 16:54 | Inpatient (IN) | payer OTHER, SELFPAY ==
[2025-08-30] VITALS (68 sets, daily range): BP systolic 114–144; BP diastolic 45–111; PULSE 64–144; TEMP 36.7; O2SAT 78–100; BMI 27.6
--- NOTE | 2025-08-30 18:26 | LDADM ---
This patient, Marcie Marques, was admitted to Labor/Delivery/Recovery 107 on 08/30/25 at 16:54. Plans for labor, pain management and were discussed with patient. Patient/family oriented to hospital policies and general routines including ID bracelet, bed and alarms, visiting hours, pain management, procedures, bathroom and other care routines, personal items, smoking policy, room service/diet and guest tray routines, infant security routines, and visiting hours. Patient/Family are encouraged to report perceived risks to care and to ask questions if they do not understand what they are told or what they should do. See OBIX for further documentation.
[2025-08-31] VITALS (219 sets, daily range): BP systolic 96–152; BP diastolic 51–122; PULSE 58–218; RESP 16–20; TEMP 36.3–37; O2SAT 85–100
[2025-08-31] MEDS: LACTATED RINGERS 1,000 ML 125 ML IV CONT ×2 (08:33→10:19)
--- NOTE | 2025-08-31 08:55 | WPDANESEPPF ---
Anes - Initial Pre Proc Eval Procedure: labor epidural Date/Time: 08/31/25 08:55 Surgeon: Patel Brandt MD Pre Op Diagnosis: labor pain Pre Op Diagnosis: iol Patient Data Age: 30 Gender: F Height: 1.6 m Weight: 70.8 kg Last Vital Signs Temp 36.5 C 08/31/25 08:00 Pulse 73 08/31/25 08:31 BP 135/89 08/31/25 08:31 Pulse Ox 97 08/31/25 06:00 O2 Del Method Room Air 08/31/25 06:34 Allergies Allergy/AdvReac Type Severity Reaction Status Date / Time erythromycin base (From Allergy Mild Unknown Verified 08/30/25 19:14 Erythrocin) Sulfa (Sulfonamide Allergy Mild Unknown Verified 08/30/25 19:14 Antibiotics) Home Medications ?Medication ?Instructions ?Recorded ?Confirmed ?Type vit no.95-ferrous 1 tablet PO DAILY 08/15/25 08/30/25 History fumarate 28 mg-folic acid 800 mcg tablet () Laboratory Tests 08/31/25 06:51 Blood Type A Positive Antibody Screen Negative Patient hx anesthesia problems: none Family hx anesthesia problems: none Results Review: All pre-operative results and documents have been reviewed as part of the pre-operative evaluation. [facility] Family History Family History (Updated 08/15/25 @ 12:32 by Margie Villalobos RN) Other No pertinent family history Social History Social History Smoking status: Never smoker Second hand tobacco smoke exposure: No Substance use: never Lack of Transportation: No Lack of Food: Never True Current Housing: I Have Housing Concerned About Future Housing: No Difficulty Paying Gas/Electric Bills: No Difficulty Paying for Meds: No Currently Unemployed: No Education: Master's Degree or Higher Difficulty w/ Childcare or Family Care: No Spiritual care concerns: No Anes - Eval Final PreProcedure Day of Procedure 08/31/25 08:55 Patient weight: overweight ASA classification: II Anesthetic plan: proceed Anesthesia type and monitoring: regional epidural and standard monitoring Results Review: All pre-operative results and documents have been reviewed as part of the pre-operative evaluation. Informed Consent: The patient's anesthetic plan and its attendant risks and benefits were discussed with the patient/family/POA. Questions were solicited and answers provided to the satisfaction of the patient/family/POA.
[2025-08-31 09:19] LABS: Syphilis IgG/IgM Antibody Non-Reactive (Nonreactive)
[2025-08-31] MEDS: fentaNYL CITRATE INJ (*CRX) 100 MCG/2 ML VIAL 50 MCG IV PUSH (09:29)
[2025-08-31] MEDS: OXYTOCIN 30 UNITS/NS 500 ML 30 UNITS/500 ML BAG IV CONT (11:13)
[2025-08-31] MEDS: SODIUM CHLORIDE 0.9% IV 300 ML 600 ML I-UTERINE (14:19)
--- NOTE | 2025-08-31 16:52 | P.PCNOB_ITS ---
OB - Vaginal Delivery Note Procedure Delivery date: 08/31/25 Events: Gestational Hypertension Induction method: AROM and Per Pitocin Protocol Delivery monitor: External FHT and Internal Uterine Route of delivery: Episiotomy description: None Laceration Description: None Specimen: No Quantitative Blood Loss (ml): 125 Anesthesia type: Epidural Disposition: Floor Complications: Other complications Evangeline Baby Date of : 08/31/25 Time of : 16:34 Gestational Age by Date: 38 gender: Female Weight (pounds): 6 Weight (ounces): 12 presentation: vertex position: Right Occiput Anterior Placenta delivery description: Expressed Cord Vessel Description: 3 Vessels score one minute: 5 score five minutes: 8 Narrative: head delivered, TOÑA. shoulder did not easily deliver. reached onto shoulder and helped ease shoulder uner the pubic bone, rest of the baby delivered without difficuty. ultrasound sonographer at forr evaluation
[2025-08-31] MEDS: OXYTOCIN 30 UNITS/NS 500 ML 30 UNITS/500 ML BAG 125 UNITS IV CONT (17:10)
[2025-08-31] MEDS: WITCH HAZEL 40 PADS 1 PAD TOPICAL (19:07)
[2025-08-31] MEDS: BENZOCAINE 20% AER SPR (*SP) 56 GM CAN 1 SPRAY TOPICAL (19:08)
--- NOTE | 2025-08-31 19:26 | PC.NURSE ---
Patient transferred to post room #279 via WC. Support person present. Oriented to unit, room, information board, rooming in, admission packet and security measures. Patient verbalizes understanding.
[2025-09-01 05:00] VITALS: BP 122/83; PULSE 79; RESP 16; TEMP 36.9; O2SAT 96
[2025-09-01 05:42] LABS: Hematocrit 30.9 % (37.0-47.0); Hemoglobin 10.3 g/dL (12.0-15.0)
[2025-09-01 07:30] VITALS: BP 136/73; PULSE 85; RESP 16; TEMP 36.7; O2SAT 97
--- NOTE | 2025-09-01 09:12 | P.PNOB_ITS ---
OB - PN: Subj Subjective Date/time seen: 09/01/25 09:12 Interval history: PPD#1 s/p c/b gestational hypertension Asymptomatic BP normotensive overnight Voiding without issue Pain controlled /pumping OB - PN: Obj Data Labs 09/01/25 05:21 Labs: Laboratory Results - last 24 hr 08/31/25 09/01/25 06:51 05:21 Hgb 10.3 L Hct 30.9 L Syphilis IgG/IgM Ab Non-reactive OB - PN A/P Assessment and Plan (1) Gestational hypertension: Code(s): O13.9 - Gestational [-induced] hypertension without significant proteinuria, unspecified trimester Status: Acute Assessment and Plan: - asymptomatic - BP normotensive - plan for 1 week BP check in office (2) (spontaneous vaginal delivery): Code(s): O80 - Encounter for full-term uncomplicated delivery Status: Acute Plan day: 1 Plan: routine care Time Spent With Patient Time: Total time spent is greater than 50% in coordination of care (as documented) at patient's floor/unit and/or counseling patient: Review of Systems 2 Review of Systems: All systems reviewed & are unremarkable except as noted in HPI and below Exam 2 Const: General: comfortable and no acute distress O rientation/consciousness: patient oriented x3 Resp: Effort & Inspection: normal respiratory effort
[2025-09-01] MEDS: IBUPROFEN 600 MG TABLET PO (09:24)
[2025-09-01] MEDS: MULTIVIT/MIN/PREN/FOL AC/IRON TABLET 1 TAB PO (09:25)
[2025-09-01] MEDS: DOCUSATE SODIUM 100 MG CAPSULE PO (10:25)
--- NOTE | 2025-09-01 11:45 | PC.NURSE ---
Consulted with patient to assess needs related to . Discussed with mother her successes, concerns and any questions she has. Per mother, infant is latching well using the side-lying position, before CLC entered room, she had breastfed for 10 minutes on her left side and was attempting to wake to feed on the right breast. Per mother they are also supplementing after each feeding with pumped breast milk and/or formula to maintain blood sugar levels. We reviewed working with the , supporting breast, protecting her nipples with an optimal deep latch, good positioning, and good hand washing. Encouraged understanding the benefits of skin to skin, responding to feeding cues, frequencies of feeding 8-12 times in 24 hours (approximately 2-3 hours), duration of feedings, milk production, intake/output feeding sheet and signs of adequate intake encouraging swallowing at the breast. Reviewed positioning and alignment, supporting breast, off-centered (asymmetrical latch) and leading with the chin with big, open, wide gape. Nipple care reviewed with optimal latch, good positioning and using clean hands when touching her breast. Resources used to facilitate learning were used from the [visual handouts/ tool/mom and baby guide]. Mother voiced understanding of the education shared, to call for assistance if the infant does not latch or if there is discomfort with . Reported to the Primary RN.
[2025-09-01 12:55] VITALS: BP 118/74; PULSE 65; RESP 18; TEMP 36.7; O2SAT 98
[2025-09-01 19:24] VITALS: BP 126/83; PULSE 66; RESP 16; TEMP 36.6; O2SAT 99
[2025-09-02 07:15] VITALS: BP 120/68; PULSE 59; RESP 18; TEMP 36.7; O2SAT 97
--- NOTE | 2025-09-02 09:20 | P.PNOB_ITS ---
OB - PN: Subj Subjective Date/time seen: 09/02/25 09:20 Interval history: PPD#1 s/p c/b gestational hypertension Asymptomatic BP normotensive overnight Voiding without issue Pain controlled /pumping Patient comments: no complaints, pain well controlled and tolerating diet OB - PN: Obj Data Labs 09/01/25 05:21 OB - PN A/P Plan day: 2 Plan: routine care and discharge home Time Spent With Patient Time: Total time spent is greater than 50% in coordination of care (as documented) at patient's floor/unit and/or counseling patient: Exam 2 Const: General: comfortable and no acute distress Resp: Effort & Inspection: normal respiratory effort Auscultation: no rales, no rhonchi and no wheezes Cardio: Rate: regular rate Heart sounds: no click, no murmurs and no rubs GI: GI Palp: Yes Soft to palpation and No Tenderness to palpation present (GI) Auscultation: normal bowel sounds Extrem: General: normal to inspection, no pedal edema and no calf tenderness
--- NOTE | 2025-09-02 09:21 | P.DS_ITS ---
DS: Admitting Diagnosis Discharge Date 09/02/2025 Admitting Diagnosis term DS: Discharge Diagnosis Discharge Diagnosis (1) Term delivered: Code(s): O80 - Encounter for full-term uncomplicated delivery Status: Acute OB - DS: Summary OB Procedures : None OB Procedures Intrapartum: Spontaneous Vag Delivery OB Procedures: : None Peripartum Data Laceration Description: None Episiotomy description: None Time Spent with Patient Time attestation: Total time spent providing and/or coordinating discharge services: Discharge Plan Discharge Consulting providers: Smita Vitale Discharging Clinician: Patel Brandt Patient Disposition: Home Activity: pelvic rest Diet: regular Patient Instructions: Antibiotic Form Patient Language: Sinhala Stand Alone Forms: General Discharge Information Follow-up/Referrals: Patel Brandt MD [Physician, RECREATION SUPERINTENDENT] Discharge Medications: Continued PNV no.95-ferrous fumarate-FA [] 28 mg iron- 800 mcg tablet 1 tablet PO DAILY Date of admission: 08/30/25 16:54 Primary Care Provider: PHYSICIAN NOT ON STAFF,NONSTAFF Admitting Provider: Patel Brandt Attending physician on admission: Patel Brandt Condition: Stable
[2025-09-02] MEDS: DOCUSATE SODIUM 100 MG CAPSULE PO (10:04)
[2025-09-02] MEDS: MULTIVIT/MIN/PREN/FOL AC/IRON TABLET 1 TAB PO (10:04)
--- NOTE | 2025-09-02 15:28 | PC.NURSE ---
[id number] Consulted with mother concerning needs and she shared her ability to independently latch infant optimally without pain to her right breast. Per mother had been possibly latching shallow to her her left breast, she had just been pumping that side to give her nipple some relief. CLC in room and was able to latch optimally to mother's left breast. Mother is feeding appropriately for growth of infant and understands stimulating infant to eat if needed. Infant has had appropriate feedings in the last 24 hours meets the outcomes for weight, output, blood sugar and jaundice at this time. Reinforced understanding of milk production, transition of milk, signs of adequate intake, transition of stool, prevention/relief of engorgement, plugged ducts, mastitis, responsive watching for feeding cues, the different methods of stimulating infant to breastfeed 1-3 hours after the start of the last feeding, community resources, and when to call a provider using the resource of the feeding sheet along with the mom and baby guide. Mother voiced understanding of the information shared, is confident to continue effectively her infant at home, when to call for assistance, denies any additional assistance or education at this time. Reported to the Primary RN.
[2025-09-03 10:28] VITALS: BP 129/80; PULSE 65; RESP 18; TEMP 36.7; O2SAT 99
== END 2025-09-02 12:57 | disposition home or self-care (01) | DRG 807 ==
LOC: ANHLDR 16:56 → ANHOB2 08-31 19:28
PROVIDERS: Advanced Practice Midwife; Admitting Provider Obstetrics & Gynecology; Visit Provider Obstetrics & Gynecology
DX: O13.4 Gestational [pregnancy-induced] hypertension without significant proteinuria, complicating childbirth (principal); Z37.0 Single live birth; Z3A.38 38 weeks gestation of pregnancy
CPT/HCPCS: 36415; 85014; 85018; 86593; 86850; 86900; 86901; A9270; J2590; J2795; J3010; J7030; J7120